=== PATIENT | male | born 1990 | race African-American/Black ===

== ENCOUNTER 2020-05-06 22:13 | Emergency (ER) | payer BC ==
[~2020-05-06] VITALS: Ht 172.7 cm; Wt 84.8 kg
[2020-05-06 22:17] VITALS: BP 142/72
[2020-05-06] MEDS ORDERED: PROAIR HFA8.5 GM INH (22:26)
[2020-05-06] MEDS ORDERED: NAPROSYN500 MG PO (22:58)
[2020-05-06] MEDS ORDERED: TYLENOL325 M1 PO (22:58)
== END 2020-05-06 23:08 | disposition home or self-care (01) ==
LOC: ER 22:13
DX: R53.83 Other fatigue (principal); T50.B95A Adverse effect of other viral vaccines, initial encounter; J45.909 Unspecified asthma, uncomplicated; Z79.899 Other long term (current) drug therapy; Z91.010 Allergy to peanuts; Z88.0 Allergy status to penicillin; Y92.89 Other specified places as the place of occurrence of the external cause

== ENCOUNTER 2021-04-21 18:55 | Emergency (ER) | payer BC ==
[~2021-04-21] VITALS: Ht 175.3 cm; Wt 99.8 kg
[~2021-04-21 18:55] MED LIST: NAPROSYN500 MG PO; PROAIR HFA8.5 GM INH; TYLENOL325 M1 PO
[2021-04-21 19:39] LABS: ABSOLUTE NEUTROPHILS 3.2 thou/uL (1.4-8.2); BASOPHILS 0.7 % (0.0-2.0); EOSINOPHILS 3.4 % (0.0-3.0); HEMATOCRIT 42.4 % (42.0-52.0); HEMOGLOBIN 14.5 gm/dL (14.0-18.0); LYMPHOCYTES 31.6 % (24.0-44.0); MCH 26.4 pg (26.0-34.0); MCHC 34.2 g/dL (28.0-37.0); MCV 77.3 fL (80.0-100.0); MONOCYTES 16.1 % (1.0-8.0); PLATELET COUNT 164 thou/uL (150-400); POLYS 48.2 % (36.0-66.0); RBC 5.48 mil/uL (4.50-6.00); RDW 13.4 % (10.5-14.5); WBC 6.7 thou/uL (4.0-11.0)
[2021-04-21 19:47] LABS: CALCIUM 8.9 mg/dL (8.5-10.1); CREATININE 1.2 mg/dL (0.7-1.3); POTASSIUM 3.8 mmol/L (3.5-5.1)
[2021-04-21 19:57] LABS: ALBUMIN 3.7 g/dL (3.4-5.0); TOTAL BILIRUBIN 0.3 mg/dL (0.2-1.0); TOTAL PROTEIN 7.5 g/dL (6.4-8.2)
[2021-04-21 21:21] VITALS: BP 136/75
--- NOTE | 2021-04-22 11:20 | EKG ---
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
== END 2021-04-21 21:22 | disposition home or self-care (01) ==
LOC: ER 18:55
PROVIDERS: Emergency Medicine
DX: B34.9 Viral infection, unspecified (principal); R55 Syncope and collapse; Z20.822 Contact with and (suspected) exposure to COVID-19

== ENCOUNTER 2021-04-26 14:52 | Emergency (ER) | payer BC ==
[~2021-04-26] VITALS: Ht 172.7 cm; Wt 97.5 kg
[2021-04-26 16:04] LABS: URINE BILIRUBIN NEGATIVE (Negative); URINE BLOOD NEGATIVE (Negative); URINE CLARITY CLEAR; URINE COLOR YELLOW; URINE GLUCOSE-RANDOM* NEGATIVE (Negative); URINE KETONES NEGATIVE (Negative); URINE LEUKOCYTES-REFLEX NEGATIVE (Negative); URINE NITRITE-REFLEX NEGATIVE (Negative); URINE PROTEIN (DIPSTICK) NEGATIVE (Negative); URINE SPECIFIC GRAVITY >= 1.030 (1.005-1.035); URINE UROBILINOGEN 0.2 E.U./dl (0.2-1.0)
[2021-04-26 16:09] LABS: ABSOLUTE NEUTROPHILS 3.7 thou/uL (1.4-8.2); BASOPHILS 0.7 % (0.0-2.0); EOSINOPHILS 2.7 % (0.0-3.0); HEMATOCRIT 41.5 % (42.0-52.0); HEMOGLOBIN 13.5 gm/dL (14.0-18.0); LYMPHOCYTES 34.2 % (24.0-44.0); MCH 25.7 pg (26.0-34.0); MCHC 32.6 g/dL (28.0-37.0); MCV 78.8 fL (80.0-100.0); MONOCYTES 10.1 % (1.0-8.0); PLATELET COUNT 194 thou/uL (150-400); POLYS 52.3 % (36.0-66.0); RBC 5.27 mil/uL (4.50-6.00); RDW 13.5 % (10.5-14.5)
[2021-04-26 16:25] LABS: CALCIUM 8.2 mg/dL (8.5-10.1); CREATININE 1.1 mg/dL (0.7-1.3); POTASSIUM 4.2 mmol/L (3.5-5.1)
[2021-04-26 16:31] LABS: ALBUMIN 3.6 g/dL (3.4-5.0); TOTAL BILIRUBIN 0.3 mg/dL (0.2-1.0); TOTAL PROTEIN 7.2 g/dL (6.4-8.2)
[2021-04-26] MEDS ORDERED: DOXYCYCLINE 10100 MG PO (17:26)
[2021-04-26] MEDS ORDERED: PREDNISONE 20 M20 MG PO (17:26)
[2021-04-26 17:45] VITALS: BP 148/86
== END 2021-04-26 18:04 | disposition home or self-care (01) ==
LOC: ER 14:52
PROVIDERS: Nurse Practitioner Family
DX: J06.9 Acute upper respiratory infection, unspecified (principal); Z20.822 Contact with and (suspected) exposure to COVID-19; J45.909 Unspecified asthma, uncomplicated; Z88.0 Allergy status to penicillin; Z91.010 Allergy to peanuts